=== PATIENT | male | born 1990 | race Caucasian/White ===

== ENCOUNTER 2017-08-13 21:56 | Emergency (ER) | payer MEDICAID, OTHER ==
[~2017-08-13] VITALS: Ht 167.6 cm; Wt 89.5 kg
[2017-08-13 21:57] VITALS: Ht 167.6 cm; Wt 89.5 kg
[2017-08-13] MEDS ORDERED: KETOROLAC 60 MG INJ IM STA (23:17)
--- NOTE | 2017-08-13 23:17 | ERD ---
ER Documentation Chief Complaint Chief Complaint bib ra for body aches, HPI 27-year-old male who was brought in by ambulance here for lower back pain that radiates to bilateral lower extremities. Denies headache, dizziness, blurred vision, neck pain, shoulder pain, chest pain , abdominal pain, nausea, vomiting, constipation, diarrhea, loss of bowel bladder control, urinary symptoms, change in bowel bladder habits, trauma, injury, falls, numbness or tingling sensation, fever, chills. No known drug allergies. Past medical history and surgical history of left hip replacement. Medication: Denies. Social: Not working at this time. Smokes about 2-3 cigarettes a day. Occasional drinks alcoholic beverages. Denies use of illegal drugs. ROS All systems reviewed and are negative except as per history of present illness. Medications Home Meds Active Scripts Cyclobenzaprine Hcl* (Cyclobenzaprine Hcl*) 10 Mg Tablet, 10 MG PO Q12 Y for MUSCLE SPASMS, #15 TAB Prov:RAJ CORRAL F 08/13/17 Allergies Allergies: Coded Allergies: ketorolac (Verified Allergy, Unknown, 08/13/17) PMhx/Soc Medical and Surgical Hx: pt denies Medical Hx History of Surgery: Yes (TOTAL LEFT HIP) Anesthesia Reaction: No Hx Neurological Disorder: No Hx Respiratory Disorders: No Hx Cardiac Disorders: No Hx Psychiatric Problems: No Hx Miscellaneous Medical Probl: No Hx Alcohol Use: Yes Hx Substance Use: No Hx Tobacco Use: Yes Smoking Status: Current some day smoker Physical Exam Vitals Vital Signs Date Time Temp Pulse Resp B/P Pulse Ox O2 Delivery O2 Flow Rate FiO2 08/13/17 21:57 98.5 82 18 142/80 100 Physical Exam Const: [] Head: Atraumatic Eyes: Normal Conjunctiva ENT: Normal External Ears, Nose and Mouth. Neck: Full range of motion..~ No meningismus. Resp: Clear to auscultation bilaterally Cardio: Regular rate and rhythm, no murmurs Abd: Soft, non tender, non distended. Normal bowel sounds Skin: No petechiae or rashes Back: No midline or flank tenderness. Positive straight leg test bilaterally. C-spine/T-spine/L-spine are in midline with good and full range of motion and has no bulging/swelling/point of tenderness/discoloration. No CVA tenderness. No saddle anesthesia. Ext: No cyanosis, or edema Neur: Awake and alert Psych: Normal Mood and Affect Results 24 hrs Laboratory Tests Test 08/13/17 23:44 Bedside Urine pH (LAB) 5.5 Bedside Urine Protein (LAB) Negative Bedside Urine Glucose (UA) Negative Bedside Urine Ketones (LAB) 1+ Bedside Urine Blood Trace-lysed Bedside Urine Nitrite (LAB) Negative Bedside Urine Leukocyte Esterase (L Negative Current Medications Medications (Trade) Dose Ordered Sig/Marilu Route PRN Reason Start Time Stop Time Status Last Admin Dose Admin Ketorolac Tromethamine (Toradol) 60 mg ONCE STAT IM 08/13/17 23:17 08/13/17 23:18 DC Cyclobenzaprine HCl (Flexeril) 10 mg ONCE ONCE PO 08/14/17 00:00 08/14/17 00:01 DC 08/13/17 23:56 Procedures/MDM 27-year-old male who was brought in by ambulance here for lower back pain that radiates to bilateral lower extremities. Denies headache, dizziness, blurred vision, neck pain, shoulder pain, chest pain , abdominal pain, nausea, vomiting, constipation, diarrhea, loss of bowel bladder control, urinary symptoms, change in bowel bladder habits, trauma, injury, falls, numbness or tingling sensation, fever, chills. No known drug allergies. Past medical history and surgical history of left hip replacement. Medication: Denies. Social: Not working at this time. Smokes about 2-3 cigarettes a day. Occasional drinks alcoholic beverages. Denies use of illegal drugs. Physical exam: Positive straight leg test bilaterally. C-spine/T-spine/L- spine are in midline with good and full range of motion and has no bulging/ swelling/point of tenderness/discoloration. No CVA tenderness. No saddle anesthesia. Disease process was explained to the patient. He verbalized understanding and agreed with the diagnostic test, treatment, plan of care, follow-up care. Treatment: Toradol IM. Reevaluation: Denies headache, dizziness, blurred vision, neck pain, shoulder pain, chest pain, back pain, abdominal pain, nausea, vomiting. No abdominal tenderness. No CVA tenderness. No neurological deficits. No neurovascular deficits. No saddle anesthesia. Stated that he feels much better this time. Differential diagnosis: Abdominal aortic aneurysm versus sciatica versus musculoskeletal spasm Final diagnosis: Sciatica Follow-up with PCP in the next 24-48 hours. Come back here in the emergency department for any symptoms or any worsening of symptoms. All questions and concerns are answered. Patient verbalized understanding and agreed with the plan of care. Hemodynamically stable on discharge. Departure Diagnosis: Primary Impression: Sciatica Condition: Stable Additional Instructions: Follow-up with PCP in the next 24-48 hours. Come back here in the emergency department for any symptoms or any worsening of symptoms. All questions and concerns are answered. Patient verbalized understanding and agreed with the plan of care. RAJ CORRAL Aug 13, 2017 23:17
[2017-08-13 23:46] LABS: URINE BLOOD (Dip) POC Trace-lysed (NEGATIVE)
[2017-08-13] MEDS ORDERED: CYCL-319 PO (23:48)
[2017-08-14] MEDS ORDERED: CYCLOBENZAPRINE 10 MG TAB PO ONE
== END 2017-08-14 00:05 | disposition home or self-care (01) ==
LOC: FTE 21:56
DX: M54.41 Lumbago with sciatica, right side (principal); M54.42 Lumbago with sciatica, left side; F17.210 Nicotine dependence, cigarettes, uncomplicated; Z96.642 Presence of left artificial hip joint
CPT/HCPCS: 81003; J1885; Z7502; Z7610; 99283